=== PATIENT | female | born 1995 | race Caucasian/White ===

== ENCOUNTER 2019-06-21 21:59 | Inpatient (IN) ==
[2019-06-21] MEDS ORDERED: OXYTOCIN 30 UNITS/500 ML BAG IV PRN (22:05)
[2019-06-21] MEDS: LACTATED RINGER'S 1,000 ML IV PRN ×2 (22:14→23:26)
[2019-06-21] MEDS ORDERED: ePHEDrine sulfate 50 MG/ML AMP ONE (22:20)
[2019-06-21] MEDS ORDERED: fentaNYL citrate 100 MCG/2 ML VIAL ONE (22:20)
[2019-06-21] MEDS ORDERED: BUPIVACAINE 0.25% 30 ML VIAL ONE (22:20)
[2019-06-21] MEDS ORDERED: fentaNYL 2MCG/ML ROPIV 1.25MG/ML 100 ML BAG EPI ONE (22:20)
[2019-06-21 22:25] LABS: Hematocrit (blood only) 36.9 % (37-47); Hemoglobin 12.3 g/dL (12.0-16.0); Mean Corpuscular Hemoglobin 27.2 pg (25-34); Mean Corpuscular Volume 81.6 fL (80-100); Mean Platelet Volume 9.8 fL (7.4-10.4); Platelet Count 257 K/uL (130-400); RDW Standard Deviation 41.9 fL (36.4-46.3); Red Blood Count 4.52 M/uL (4.2-5.4); White Blood Count 12.11 K/uL (4.8-10.8)
[2019-06-21 22:32] LABS: Mean Corpuscular Hgb Conc 33.3 g/dL (32-36)
--- NOTE | 2019-06-21 22:46 | Anesthesiology Consultation ---
Date of Service June 21, 2019 Assessment & Plan Chart Review Chart Review: Patient NOT seen in Pre Admission Testing and Acceptable Risk for Labor Epidural Consults Requested none ASA ASA2 Proposed Anesthesia Anesthesia Type: Labor Epidural and CSE Risk / Benefits Reviewed With: PT / POA / Parent / Guardian, Accepts Plan and Informed Consent Obtained History Height/Weight Height: 5 ft 5 in Weight: 71.668 kg Allergies Allergy/AdvReac Type Severity Reaction Status Date / Time No Known Allergies Allergy Verified 06/21/19 22:15 Medications Home Medications Medication Instructions Recorded Confirmed Last Taken 1 tab PO DAILY 04/27/19 06/21/19 06/20/19 vitamin,calcium,zmlucmlv-azfq-tzgqa acid tablet Active Medications Generic Name Dose Route Start Last Admin Trade Name Freq PRN Reason Stop Dose Admin Lactated Ringer's 1,000 mls @ 125 mls/hr 06/21/19 22:05 06/21/19 22:14 Lr IV 06/23/19 22:04 999 mls/hr .Q8H PRN Administration L&D Protocol Protocol NPO Date Last Intake of Fluids: 06/21/19 Time Last Intake of Fluids: 22:00 Date Last Intake of Solids: 06/21/19 Time Last Intake of Solids: 19:30 Past Medical History Medical History History of kidney stones History of varicella Hx of migraines no meds Exercise / Class Metabolic Activity II 4-5 Yardwork/Stairs/Walk up hill Past Family History Family History Mother Depression Sister Depression Grandmother (Maternal) Breast cancer Colorectal cancer Past Surgical History Surgical History S/P wisdom tooth extraction at age 18 Past Anesthesia History No Hx of Anesthesia Complications and No Family Hx of Anesthesia Complications History of PONV No Hx of PONV and No Hx of Motion Sickness Social History Smoking Status: Never smoker Hx Alcohol Use: No Hx Substance Use: No Review of Systems no chest pain or sob Physical Exam Vital Signs Last Vital Signs Temp 36.9 C 06/21/19 22:05 Pulse 78 06/21/19 22:31 Resp 20 06/21/19 22:05 BP 124/62 06/21/19 22:31 ENMT Mouth: no TMJ abnormality Thyromental Distance: > or= 3.5 Finger Breadths Mallampati Class: II Neck normal visual inspection Respiratory normal respiratory effort Auscultation: lungs clear to auscultation bilaterally Cardiovascular Rate/Rhythm: regular rate and regular rhythm Musculoskeletal Spine: normal cervical ROM Neurologic moves all extremities Psychiatric Orientation: alert and oriented x 3 Testing Laboratory Results 06/21/19 22:15
[2019-06-21] MEDS ORDERED: NALBUPHINE HCL INJ 10 MG/ML AMP IV PRN (23:04)
[2019-06-21] MEDS ORDERED: NALOXONE HCL 0.4 MG/1 ML VIAL/CARP IV PRN (23:04)
[2019-06-21] MEDS ORDERED: NALOXONE HCL 1 MG in SODIUM CHLORIDE 0.9% 1000ML 1,000 ML IV PRN (23:04)
[2019-06-21] MEDS ORDERED: ONDANSETRON INJ 2 MG/ML 2 ML VIAL IV PRN (23:04)
[2019-06-21] MEDS ORDERED: ePHEDrine sulfate 50 MG/ML AMP IV PRN (23:04)
[2019-06-21] MEDS ORDERED: fentaNYL 2MCG/ML ROPIV 1.25MG/ML 100 ML BAG EPI PRN (23:04)
[2019-06-21] MEDS ORDERED: DiphenhydrAMINE HCL 50 MG/ML VIAL IV PRN (23:04)
--- NOTE | 2019-06-21 23:38 | History & Physical Report ---
Date of Service June 21, 2019 Assessment & Plan (1) : Spontaneous labor. Admit to L&D. Labs, EFM/toco. OK for epidural. Anticipate . History of Present Illness Chief Complaint: spontaneous labor Primary Care Provider: JERRY PCP 23yo @ 38 02/02 presents with spontaneous labor. She has had regular contractions, increasing in frequency and intensity since 6pm tonight. No leaking of fluid, no vaginal bleeding. + movement. 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 Allergies Allergy/AdvReac Type Severity Reaction Status Date / Time No Known Allergies Allergy Verified 06/21/19 22:15 Home Medications Home Medications Medication Instructions Recorded Confirmed Type 1 tab PO DAILY 04/27/19 06/21/19 History vitamin,calcium,knqdlnbc-viho-fpirw acid tablet Patient History Medical History History of kidney stones History of varicella Hx of migraines no meds Surgical History S/P wisdom tooth extraction at age 18 Family History Mother Depression Sister Depression Grandmother (Maternal) Breast cancer Colorectal cancer Social History Preferred Language: Belarusian Communication Ability: Effective [employer] Required: No Beliefs That Will Affect Care: None marital status: Current Living Situation: Spouse Current Living Situation Comment: house with daughter Feels Safe at Home: Yes Safety Concerns: Feels Safe At This Time Smoking Status: Never smoker Hx Alcohol Use: No Hx Substance Use: No Review of Systems All systems reviewed & are unremarkable except as noted in HPI & below Physical Exam Physical Exam: SVE per RN: /-1 FHT Cat 1 [place] Q 2 min Constitutional: WD/WN, vitals as above Respiratory: normal respiratory effort, lungs clear to auscultation no respiratory distress Cardiovascular: Rate/Rhythm: regular rate and regular rhythm Gastrointestinal (Abdomen): Inspection/Auscultation: abdomen normal to inspection Percussion/Palpation: abdomen soft; abdomen nontender Gravid. No s/s chorio or abruption. Skin: no rashes, warm and dry Psychiatric: A+Ox3, euthymic affect Results & Data Vital Signs (Past 12 Hours) Vital Signs Temp Pulse Resp BP Pulse Ox 06/21/19 23:06 95 H 101/56 L 06/21/19 23:04 93 H 106/60 95 06/21/19 23:02 100 H 107/61 06/21/19 23:00 92 H 110/59 L 06/21/19 22:59 105 H 97 06/21/19 22:58 86 119/63 94 06/21/19 22:54 96 H 99 06/21/19 22:49 109 H 99 06/21/19 22:44 98 H 99 06/21/19 22:31 78 124/62 06/21/19 22:05 36.9 C 111 H 20 140/84 06/21/19 22:02 111 H 140/84
--- NOTE | 2019-06-21 23:48 | Obstetrical Progress Note ---
Date of Service June 21, 2019 Subjective Comfortable with epidural. FHT cat 1, toco Q2 SVE 6/100/-1 AROM clear fluid Results & Data Vital Signs (Past 12 Hours) Vital Signs Temp Pulse Resp BP Pulse Ox 06/21/19 23:44 101 H 96 06/21/19 23:39 99 H 96 06/21/19 23:38 100 H 111/60 94 06/21/19 23:34 96 H 97 06/21/19 23:33 114 H 118/64 06/21/19 23:29 105 H 117/59 L 97 06/21/19 23:24 104 H 96 06/21/19 23:23 109 H 113/57 L 06/21/19 23:20 96 H 117/65 92 06/21/19 23:19 94 H 95 06/21/19 23:14 108 H 106/59 L 97 06/21/19 23:09 98 H 97 06/21/19 23:08 98 H 101/59 L 06/21/19 23:06 95 H 101/56 L 06/21/19 23:04 93 H 106/60 95 06/21/19 23:02 100 H 107/61 06/21/19 23:00 92 H 110/59 L 06/21/19 22:59 105 H 97 06/21/19 22:58 86 119/63 94 06/21/19 22:54 96 H 99 06/21/19 22:49 109 H 99 06/21/19 22:44 98 H 99 06/21/19 22:31 78 124/62 06/21/19 22:05 36.9 C 111 H 20 140/84 06/21/19 22:02 111 H 140/84 PG Care Time/CCT Total # of Minutes Spent Total Time Spent with Patient: Total time spent is greater than 50% in coordination of care (as documented) at patient's floor/unit and/or counseling patient:
--- NOTE | 2019-06-22 02:58 | Delivery Summary ---
Vaginal Delivery Summary Date of Service June 22, 2019 Vaginal Delivery Summary Vaginal Delivery Summary: Pre-delivery diagnoses: 24yo @ 38 6/, spontaneous labor, CF carrier Post-delivery diagnoses: same Procedure: spontaneous vaginal delivery Surgeon: Anita Samson DO Complications: none Findings: Viable female . Apgars: 9/9. Weight pending, please see nursery records Estimated blood loss: 300ml Description of delivery: The patient progressed to complete with epidural anesthesia. She then began to push. She spontaneously vaginally delivered a viable from the cephalic presentation. The head delivered in RAYMOND position. The anterior shoulder delivered, followed by the posterior shoulder, followed by the body. The baby was placed on mother's abdomen and a spontaneous cry was heard. The cord was doubly clamped and cut. Cord blood was obtained. The placenta was delivered spontaneously intact with a 3-vessel cord. The uterus and vagina were swept of clots and debris. IV pitocin was given. The uterus became firm. The cervix, vagina, and perineum were inspected and no lacerations were noted. Excellent hemostasis was observed. The mother and baby are recovering in stable and good condition in the room. Sponge and instrument counts were correct x 2. Anita Samson DO [facility] [place]
--- NOTE | 2019-06-22 03:29 | Anesthesia Procedure Note ---
Date of Service June 22, 2019 Anesthesia Post Epidural Note Vital Signs Vital Signs: Temp Pulse Resp BP Pulse Ox 36.8 C 69 18 104/59 L 96 06/22/19 01:41 06/22/19 03:26 06/22/19 03:11 06/22/19 03:26 06/22/19 01:05 Notes Mental Status: alert / awake / arousable and participated in evaluation Nausea / Vomiting: adequately controlled Pain: adequately controlled Airway Patency, RR, SpO2: stable & adequate BP & HR: stable & adequate Hydration State: stable & adequate Neuraxial Anesthesia: was administered and sensory block is resolving Anesthetic Complications: no major complications apparent and Pt Satisfied with anesthetic care Epidural: Removed without complications and With tip intact
[2019-06-22] MEDS ORDERED: OXYCODONE/ACETAMINOPHEN 5mg/325mg TAB PO PRN (04:27)
[2019-06-22] MEDS ORDERED: BISACODYL 10 MG SUPP PR PRN (04:27)
[2019-06-22] MEDS ORDERED: DIPHTHERIA/TETANUS/PERTUSSIS 0.5 ML SYR/VIAL IM ONE (04:27)
[2019-06-22] MEDS ORDERED: OXYTOCIN 30 UNITS/500 ML BAG IV PRN (04:27)
[2019-06-22] MEDS ORDERED: SUPERCREAM 0.870% 15 GM JAR EXT PRN (04:27)
[2019-06-22] MEDS ORDERED: HYDROCORTISONE ACETATE 25 MG SUPP PR PRN (04:27)
[2019-06-22] MEDS ORDERED: BENZOCAINE 20% AER SPR 82.5 GM CAN EXT PRN (04:27)
[2019-06-22] MEDS ORDERED: ACETAMINOPHEN 325 MG TAB PO PRN (04:27)
[2019-06-22] MEDS ORDERED: IBUPROFEN 600 MG TAB PO PRN (04:27)
--- NOTE | 2019-06-22 06:13 | Obstetrical Progress Note ---
Date of Service <Mariana Lin DO - Last Filed: 06/22/19 06:48> June 22, 2019 Assessment & Plan <DO Kami Duron Last Filed: 06/22/19 06:48> (1) Encounter for care and examination after delivery: 34 yo F PPD #1 following vaginal delivery at 38w6d, doing well and without complaints this morning. - PPD #1 - Feels well, ambulating well, voiding well. - Will continue routine care. - Following d/c will have f/u in 6 weeks. - Blood type B+, Rubella immune. Day #:: 1 Subjective <Mariana Lin DO - Last Filed: 06/22/19 06:48> Belem is a 24 yo female ; PPD # 1 following spontaneous vaginal delivery at 38w6d; doing well this AM; no abdominal cramping/pain; voiding well, passing gas but no BM; tolerating meals overnight, able to ambulate some within the room. Some persistent spotting this morning but improved from yesterday. Review of Systems Constitutional: denies fever, chills, sweats, headache Respiratory: denies SOB, difficulty breathing Cardiac: denies CP, chest palpitations, chest pressure Breast: denies breast pain : denies dysuria Physical Exam <DO Kami Duron Last Filed: 06/22/19 06:48> General: patient is alert and oriented, in NAD Cardiac: +S1/S2, no murmurs rubs or gallops Respiratory: lungs CTA b/l, anteriorly and posteriorly, no wheezes rales or rhonchi, no increased work of breathing, symmetric chest rise, no respiratory distress Abdomen: soft, NT, +bowel sounds Uterus: uterine fundus firm, palpable 2cm below the umbilicus Lower Extremities: no LE edema or swelling, no deep calf pain, Agatha's sign negative b/l Results & Data <DO Kami Duron Last Filed: 06/22/19 06:48> Vital Signs (Past 12 Hours) Vital Signs Temp Pulse Pulse Resp BP BP Pulse Ox 06/22/19 04:00 36.9 C 81 17 115/75 97 06/22/19 03:26 69 104/59 L 06/22/19 03:11 75 18 102/56 L 06/22/19 02:56 94 H 105/57 L 06/22/19 02:41 68 18 106/59 L 06/22/19 02:26 82 112/68 06/22/19 02:11 83 18 114/62 06/22/19 01:56 86 18 115/63 06/22/19 01:41 36.8 C 86 18 115/63 06/22/19 01:26 96 H 18 114/59 L 06/22/19 01:11 100 H 18 114/62 06/22/19 01:05 108 H 96 06/22/19 01:00 114 H 96 06/22/19 00:57 112 H 126/77 06/22/19 00:55 101 H 99 06/22/19 00:50 95 H 97 06/22/19 00:45 112 H 96 06/22/19 00:44 112 H 99/58 L 06/22/19 00:40 89 95 06/22/19 00:35 88 96 06/22/19 00:30 109 H 96 06/22/19 00:28 104 H 117/65 06/22/19 00:25 84 96 06/22/19 00:23 86 103/65 06/22/19 00:20 115 H 99 06/22/19 00:19 97 H 98/68 L 06/22/19 00:16 88 76/42 L 06/22/19 00:15 89 96 06/22/19 00:12 100 H 82/45 L 06/22/19 00:10 99 H 96 06/22/19 00:05 102 H 96 06/22/19 00:00 90 95 06/21/19 23:58 100 H 89/51 L 06/21/19 23:57 102 H 94 06/21/19 23:55 106 H 96 06/21/19 23:52 96 H 119/56 L 06/21/19 23:50 98 H 85 L 06/21/19 23:44 101 H 96 06/21/19 23:39 99 H 96 06/21/19 23:38 100 H 111/60 94 06/21/19 23:34 96 H 97 06/21/19 23:33 114 H 118/64 06/21/19 23:29 105 H 117/59 L 97 06/21/19 23:24 104 H 96 06/21/19 23:23 109 H 113/57 L 06/21/19 23:20 96 H 117/65 92 06/21/19 23:19 94 H 95 06/21/19 23:14 108 H 106/59 L 97 06/21/19 23:09 98 H 97 06/21/19 23:08 98 H 101/59 L 06/21/19 23:06 95 H 101/56 L 06/21/19 23:04 93 H 106/60 95 06/21/19 23:02 100 H 107/61 06/21/19 23:00 92 H 110/59 L 06/21/19 22:59 105 H 97 06/21/19 22:58 86 119/63 94 06/21/19 22:54 96 H 99 06/21/19 22:49 109 H 99 06/21/19 22:44 98 H 99 06/21/19 22:31 78 124/62 06/21/19 22:05 36.9 C 111 H 20 140/84 06/21/19 22:02 111 H 140/84 Laboratory Results Laboratory Results - last 24 hr 06/21/19 06/21/19 22:15 22:15 WBC 12.11 H RBC 4.52 Hgb 12.3 Hct 36.9 L MCV 81.6 MCH 27.2 MCHC 33.3 RDW Std Deviation 41.9 RDW Coeff of Mina 14.0 Plt Count 257 MPV 9.8 Blood Type Pending Medications Administered Current Medications Acetaminophen (Tylenol) 650 mg PO Q6H PRN PRN Reason: Pain/RANDALL/Fever Stop: 07/22/19 04:26 Benzocaine (Dermoplast Pain Relieving [place]) 1 appln EXT PRN PRN PRN Reason: Perineal Discomfort Stop: 07/22/19 04:26 Bisacodyl (Dulcolax) 5 mg PO 2000 AURY Stop: 06/23/19 20:01 Bisacodyl (Dulcolax) 10 mg IN DAILY PRN PRN Reason: No BM on 2nd post- day Stop: 07/22/19 04:26 Cocaine HCl (Supercream 0.870%) 1 gm EXT BID PRN PRN Reason: Hemorrhoidal Inflammation Stop: 07/06/19 04:26 Docusate Sodium (Colace) 100 mg PO DAILY@08,21 AURY Stop: 07/22/19 07:59 Hydrocortisone (Anusol Hc) 25 mg IN BID PRN PRN Reason: Hemorrhoidal Inflammation Stop: 07/22/19 04:26 Oxytocin (Pitocin) 30 units in 500 mls @ 333.333 mls/hr IV .Q1H30M PRN; Protocol PRN Reason: Bleeding Control Stop: 07/22/19 04:26 Ibuprofen (Motrin) 600 mg PO Q4H PRN PRN Reason: Pain/RANDALL/Cramping/Fever Stop: 07/22/19 04:26 Oxycodone/Acetaminophen (Percocet 5mg/325mg) 1 tab PO Q4H PRN PRN Reason: Pain not relieved by... Stop: 07/06/19 04:26 Prenat Multivit/[place]/Iron/Folic Ac ( Vitamin) 1 tab PO DAILY@08 AURY Stop: 07/22/19 07:59 <Anita Samson DO - Last Filed: 06/22/19 08:27> Co-Signing Physician Notes Resident Physician Supervision Note: I was present with Dr. Ayala during the history and exam. I discussed the case with the resident and agree with the findings and plan as documented in the note. Any exceptions or clarifications are listed here: PPD#0 - resident note is incorrect, but unable to amend this due to [facility]. No concerns. Routine care. Documented By: Anita Samson DO Resident Activity Tracking <Mariana Lin DO - Last Filed: 06/22/19 06:48> Resident Involvement: Resident Care Provided Care Provided: Adult [facility] Medicine
[2019-06-22] MEDS: PRENATAL VITAMIN 1 TAB PO SCH (09:03)
[2019-06-22] MEDS: DOCUSATE SODIUM 100 MG CAP PO SCH ×2 (09:03→20:36)
--- NOTE | 2019-06-23 05:59 | Obstetrical Progress Note ---
Date of Service <Mariana Lin DO - Last Filed: 06/23/19 06:49> June 23, 2019 Assessment & Plan <Mariana Lin DO - Last Filed: 06/23/19 06:49> (1) Encounter for care and examination after delivery: 34 yo F PPD #1 following vaginal delivery at 38w6d, doing well and without complaints this morning. - PPD #1 - Feels well, ambulating well, voiding well. - Will continue routine care. - Following d/c will have f/u in 6 weeks. - Blood type B+, Rubella immune. Subjective <Mariana Lin DO - Last Filed: 06/23/19 06:49> Be[place] is a 24 yo female ; PPD # 2 following spontaneous vaginal delivery at 38w6d; doing well this AM; no abdominal cramping/pain; voiding well, passing gas but no BM; tolerating meals overnight, able to ambulate some within the room. Some persistent spotting this morning but improved from yesterday. Review of Systems Constitutional: denies fever, chills, sweats, headache Respiratory: denies SOB, difficulty breathing Cardiac: denies CP, chest palpitations, chest pressure Breast: denies breast pain : denies dysuria Physical Exam <Mariana Lin DO - Last Filed: 06/23/19 06:49> General: patient is alert and oriented, in NAD Cardiac: +S1/S2, no murmurs rubs or gallops Respiratory: lungs CTA b/l, anteriorly and posteriorly, no wheezes rales or rhonchi, no increased work of breathing, symmetric chest rise, no respiratory distress Abdomen: soft, NT, +bowel sounds Uterus: uterine fundus firm, palpable 3cm below the umbilicus Lower Extremities: no LE edema or swelling, no deep calf pain, Agatha's sign negative b/l Results & Data <DO Kami Duron Last Filed: 06/23/19 06:49> Vital Signs (Past 12 Hours) Vital Signs Temp Pulse Resp BP Pulse Ox 06/23/19 00:35 36.5 C 67 16 118/71 97 06/22/19 20:30 36.9 C 72 16 102/65 98 Laboratory Results Laboratory Results - last 24 hr 06/21/19 22:15 Blood Type B Positive Medications Administered Current Medications Acetaminophen (Tylenol) 650 mg PO Q6H PRN PRN Reason: Pain/RADNALL/Fever Stop: 07/22/19 04:26 Benzocaine (Dermoplast Pain Relieving [place]) 1 appln EXT PRN PRN PRN Reason: Perineal Discomfort Stop: 07/22/19 04:26 Bisacodyl (Dulcolax) 5 mg PO 2000 [facility] Stop: 06/23/19 20:01 Bisacodyl (Dulcolax) 10 mg DE DAILY PRN PRN Reason: No BM on 2nd post- day Stop: 07/22/19 04:26 Cocaine HCl (Supercream 0.870%) 1 gm EXT BID PRN PRN Reason: Hemorrhoidal Inflammation Stop: 07/06/19 04:26 Docusate Sodium (Colace) 100 mg PO DAILY@08,21 [facility] Stop: 07/22/19 07:59 Last Admin: 06/22/19 20:36 Dose: 100 mg Documented by: Hydrocortisone (Anusol Hc) 25 mg DE BID PRN PRN Reason: Hemorrhoidal Inflammation Stop: 07/22/19 04:26 Oxytocin (Pitocin) 30 units in 500 mls @ 333.333 mls/hr IV .Q1H30M PRN; Protocol PRN Reason: Bleeding Control Stop: 07/22/19 04:26 Ibuprofen (Motrin) 600 mg PO Q4H PRN PRN Reason: Pain/RANDALL/Cramping/Fever Stop: 07/22/19 04:26 Last Admin: 06/22/19 16:14 Dose: 600 mg Documented by: Oxycodone/Acetaminophen (Percocet 5mg/325mg) 1 tab PO Q4H PRN PRN Reason: Pain not relieved by... Stop: 07/06/19 04:26 Prenat Multivit/[place]/Iron/Folic Ac ( Vitamin) 1 tab PO DAILY@08 [facility] Stop: 07/22/19 07:59 Last Admin: 06/22/19 09:03 Dose: 1 tab Documented by: <Ravindra Crane Jr, MD, FACOG - Last Filed: 06/23/19 08:03> Co-Signing Physician Notes Resident Physician Supervision Note: I was present with Dr. Ayala during the history and exam. I discussed the case with the resident and agree with the findings and plan as documented in the note. Any exceptions or clarifications are listed here: patient desires discharge, instructions given, f/u in 6 weeks Documented By: Ravindra Crane Jr, MD, FACOG Resident Activity Tracking <Mariana Lin DO - Last Filed: 06/23/19 06:49> Resident Involvement: Resident Care Provided Care Provided: Adult [facility] Medicine
[2019-06-23 07:18] LABS: Hematocrit (blood only) 37.8 % (37-47); Hemoglobin 12.4 g/dL (12.0-16.0); Mean Corpuscular Hemoglobin 27.2 pg (25-34); Mean Corpuscular Hgb Conc 32.8 g/dL (32-36); Mean Corpuscular Volume 82.9 fL (80-100); Mean Platelet Volume 10.1 fL (7.4-10.4); Platelet Count 240 K/uL (130-400); RDW Coefficient of Variation 14.2 % (11.5-14.5); RDW Standard Deviation 42.6 fL (36.4-46.3); Red Blood Count 4.56 M/uL (4.2-5.4); White Blood Count 11.13 K/uL (4.8-10.8)
[2019-06-23] MEDS: PRENATAL VITAMIN 1 TAB PO SCH (07:57)
[2019-06-23] MEDS: DOCUSATE SODIUM 100 MG CAP PO SCH (07:57)
[2019-06-23] MEDS ORDERED: BISACODYL 5 MG TABEC PO SCH (20:00)
== END 2019-06-23 11:12 | disposition home or self-care (01) | DRG 807 ==
LOC: OPB 21:59 → 4S1 22:00 → 4S2 06-22 03:56

== ENCOUNTER 2020-11-26 11:30 | Observation (INO) ==
--- NOTE | 2020-11-26 13:03 | Labor Progress Brief Note ---
Date of Service November 26, 2020 Subjective Patient presents from home with c/o ctx Q2min, nonpainful, but notes that she had no pain with contractions during labor with her first two children either. No LOF, no VB, +FM. Assessment & Plan (1) Uterine contractions: Reassess in 1-2 hour Physical Exam Physical Exam: /-2 FHT Cat 1 [place] Q2-3 No ROM evident Results & Data ([facility]) Vital Signs (Past 12 Hours) Vital Signs Temp Pulse Resp BP 11/26/20 11:40 90 20 118/63 11/26/20 11:30 97.9 F 20 Coding Level of Care Code None Diagnoses Uterine contractions
--- NOTE | 2020-11-26 14:44 | Labor Progress Brief Note ---
Date of Service November 26, 2020 Subjective Patient has told RN she is feeling less crampy, contractions further apart, despite ambulation. She also mentioned she had sex earlier this morning which she hadn't told me at the time of admission. +FM no LOF no VB. Assessment & Plan (1) Uterine contractions: Likely 2/2 intercourse, now spacing further apart, and without cervical change, therefore not in labor at this time. status reassuring. Keep upcoming office appointments as planned. Physical Exam Physical Exam: cervix unchanged. FHT Cat 1 [place] Q5m Results & Data ([facility]) Vital Signs (Past 12 Hours) Vital Signs Temp Pulse Resp BP 11/26/20 14:23 97.9 F 106 H 20 111/71 11/26/20 11:40 90 20 118/63 11/26/20 11:30 97.9 F 20 Coding Level of Care Code 83660 Office/Outpt Visit, Est Diagnoses Uterine contractions
== END 2020-11-26 15:10 | disposition home or self-care (01) ==
LOC: OPB 11:30 → 4S1 11:30

== ENCOUNTER 2022-08-19 22:39 | Inpatient (IN) ==
[2022-08-19] MEDS ORDERED: LIDOCAINE 1% LOCAL 20 ML VIAL INFIL PRN (23:19)
[2022-08-19] MEDS ORDERED: OXYTOCIN 30 UNITS/500 ML BAG IV PRN (23:19)
[2022-08-19 23:37] LABS: Hematocrit (blood only) 35.6 % (34.1-44.9); Mean Corpuscular Hemoglobin 27.6 pg (25.0-34.0); Mean Corpuscular Hgb Conc 33.7 g/dL (32.0-36.0); Mean Platelet Volume 9.9 fL (9.4-12.3); Platelet Count 266 K/uL (130-400); RDW Coefficient of Variation 13.2 % (11.5-14.5); RDW Standard Deviation 39.4 fL (36.4-46.3); Red Blood Count 4.34 M/uL (3.93-5.22); White Blood Count 9.88 K/ul (4.8-10.8)
[2022-08-19] MEDS: LACTATED RINGER'S 1,000 ML IV PRN (23:41)
[2022-08-19] MEDS ORDERED: fentaNYL citrate 100 MCG/2 ML VIAL ONE (23:45)
[2022-08-19] MEDS ORDERED: BUPIVACAINE 0.25% 30 ML VIAL ONE (23:45)
[2022-08-19] MEDS ORDERED: SODIUM CHLORIDE 0.9% INJ 10 ML VIAL ONE (23:45)
[2022-08-19] MEDS ORDERED: ePHEDrine sulfate 50 MG/ML AMP ONE (23:45)
[2022-08-19] MEDS ORDERED: LIDOCAINE 2%/EPINEPHRINE 1:200,000 20 ML SDV ONE (23:45)
[2022-08-19] MEDS ORDERED: fentaNYL 2MCG/ML ROPIVACAINE 1.25MG/ML 100 ML BAG EPI ONE (23:46)
[2022-08-20] MEDS ORDERED: NALOXONE HCL 1 MG in SODIUM CHLORIDE 0.9% 1000ML 1,000 ML IV PRN (00:36)
[2022-08-20] MEDS ORDERED: fentaNYL 2MCG/ML ROPIVACAINE 1.25MG/ML 100 ML BAG EPI PRN (00:36)
[2022-08-20] MEDS ORDERED: ONDANSETRON INJ 2 MG/ML 2 ML VIAL IV PRN (00:36)
[2022-08-20] MEDS ORDERED: ePHEDrine sulfate 50 MG/ML AMP IV PRN (00:36)
[2022-08-20] MEDS ORDERED: NALBUPHINE HCL INJ 10 MG/ML AMP IV PRN (00:36)
[2022-08-20] MEDS ORDERED: diphenhydrAMINE 50 MG/ML VIAL IV PRN (00:36)
[2022-08-20] MEDS ORDERED: NALOXONE HCL 0.4 MG/1 ML VIAL/CARP IV PRN (00:36)
--- NOTE | 2022-08-20 00:36 | Anesthesiology Consultation ---
Date of Service August 20, 2022 Assessment & Plan Chart Review Chart Review: Patient NOT seen in Pre Admission Testing and Acceptable Risk for Labor Epidural Consults Requested none ASA ASA2 Proposed Anesthesia Anesthesia Type: CSE Risk / Benefits Reviewed With: PT / POA / Parent / Guardian, Accepts Plan and Informed Consent Obtained History Height/Weight Height: 5 ft 5 in Weight: 76.385 kg Allergies Allergy/AdvReac Type Severity Reaction Status Date / Time No Known Allergies Allergy Verified 08/19/22 10:35 Medications Home Medications Medication Instructions Recorded Confirmed Last Taken magnesium PO 01/21/22 08/19/22 Unknown prenat.vits,shruthi,cta-ndfe-rbiiu 1 tab PO DAILY 01/21/22 08/20/22 Unknown riboflavin (vitamin B2) PO 01/21/22 08/19/22 Unknown Active Medications Generic Name Dose Route Start Last Admin Trade Name Freq PRN Reason Stop Dose Admin Lactated Ringer's 1,000 mls @ 125 mls/hr 08/19/22 23:19 08/19/22 23:41 Lr IV 08/21/22 23:18 999 mls/hr .Q8H PRN Administration L&D Protocol Protocol Past Medical History Medical History Classic migraine with aura Cystic fibrosis carrier History of kidney stones History of varicella Hx of migraines Normal vaginal delivery Exercise / Class Metabolic Activity II 4-5 Yardwork/Stairs/Walk up hill Past Family History Family History Mother Depression Sister Depression Grandmother (Maternal) Breast cancer Colorectal cancer Past Surgical History Surgical History S/P wisdom tooth extraction Past Anesthesia History No Hx of Anesthesia Complications and No Family Hx of Anesthesia Complications History of PONV No Hx of PONV and No Hx of Motion Sickness Social History Smoking Status: Never smoker Hx Alcohol Use: No Hx Substance Use: No substance use type: does not use Physical Exam Vital Signs Last Vital Signs Temp 36.8 C 08/19/22 23:10 Pulse 79 08/20/22 00:32 Resp 20 08/20/22 00:30 BP 120/70 08/20/22 00:32 Pulse Ox 98 08/20/22 00:32 ENMT Mouth: no dentition abnormality Thyromental Distance: > or= 3.5 Finger Breadths Mallampati Class: II Neck normal visual inspection Respiratory normal respiratory effort Auscultation: lungs clear to auscultation bilaterally Cardiovascular Rate/Rhythm: regular rate and regular rhythm Psychiatric Orientation: alert Testing Laboratory Results 08/19/22 23:25
[2022-08-20] MEDS: LACTATED RINGER'S 1,000 ML IV PRN (01:25)
[2022-08-20] MEDS ORDERED: HYDROCORTISONE ACETATE 25 MG SUPP PR PRN (01:46)
[2022-08-20] MEDS ORDERED: DIPHTHERIA/TETANUS/PERTUSSIS 0.5 ML SYR/VIAL IM ONE (01:46)
[2022-08-20] MEDS ORDERED: bisacodyL 10 MG SUPP PR PRN (01:46)
[2022-08-20] MEDS ORDERED: OXYTOCIN 30 UNITS/500 ML BAG IV PRN (01:46)
[2022-08-20] MEDS ORDERED: ACETAMINOPHEN 325 MG TAB PO PRN (01:46)
[2022-08-20] MEDS ORDERED: BENZOCAINE 20% AER SPR 82.5 GM CAN EXT PRN (01:46)
--- NOTE | 2022-08-20 03:21 | Anesthesia Procedure Note ---
Date of Service August 20, 2022 Anesthesia Post Epidural Note Vital Signs Vital Signs: Temp Pulse Resp BP Pulse Ox 36.8 C 93 H 18 107/59 L 99 08/20/22 00:40 08/20/22 03:16 08/20/22 03:15 08/20/22 03:16 08/20/22 01:47 Notes Mental Status: alert / awake / arousable Nausea / Vomiting: adequately controlled Pain: adequately controlled Airway Patency, RR, SpO2: stable & adequate BP & HR: stable & adequate Hydration State: stable & adequate Neuraxial Anesthesia: was administered and sensory block is resolving Anesthetic Complications: no major complications apparent and Pt Satisfied with anesthetic care Epidural: Removed without complications and With tip intact
--- NOTE | 2022-08-20 07:26 | Delivery Summary ---
DATE OF SERVICE: 08/20/2022. PROCEDURE: Normal spontaneous vaginal delivery. SURGEON: Mario Anna MD. PREOPERATIVE DIAGNOSES: 1. Single intrauterine at 38 weeks 0 days gestational age. 2. Spontaneous labor with rupture of membranes. POSTOPERATIVE DIAGNOSES: 1. Single intrauterine at 38 weeks 0 days gestational age. 2. Spontaneous labor with rupture of membranes. 3. Status post procedure. ESTIMATED BLOOD LOSS: 300 mL DRAINS: Straight cath at the completion of the case. URINE OUTPUT: Per straight cath. COMPLICATIONS: None. FINDINGS: Viable male with weight of 8 pounds 14 ounces and Apgars of 7 and 9 at one and fiv e minutes respectively. INDICATIONS: Belem is a 27-year-old G4, P3, admitted with spontaneous rupture of membranes in labor . The patient progressed in labor rapidly without augmentation to complete-complete, +2 station. Th e patient pushed over approximately 2-3 contractions to achieve delivery. DESCRIPTION OF PROCEDURE: The patient progressed to 10 cm dilated, 100% effaced, positive 2 station, pushed over intact perineum with epidural anesthesia, delivered a viable with weight and Apg ars as above. Head of the delivered in RAYMOND position, restituted to left transverse. No nuch al cord was noted. Body and shoulders quickly followed. was noted to be vigorous upon deliv imani and a 1 minute delayed cord clamping was initiated. Cord was then double clamped and cut. Neona te remained on maternal abdomen. Cord blood was obtained. Attention was then turned to delivery of the placenta, which was delivered intact, 3-vessel cord, gentle cord traction. On inspection of the perineum, vagina, cervix, there was noted to be no lacerations. The patient was given 800 mcg of Cyt otec at the completion of the case. Sponge and instrument counts were correct at the completion of t he case. Both mother and stable in the immediate post-delivery period. Job ID: [id number]
[2022-08-20] MEDS: DOCUSATE SODIUM 100 MG CAP PO SCH ×2 (08:04→20:42)
[2022-08-20] MEDS: PRENATAL VITAMIN 1 TAB PO SCH (08:04)
[2022-08-20] MEDS: FERROUS SULFATE 325 MG TAB PO SCH (08:04)
[2022-08-20] MEDS: IBUPROFEN 600 MG TAB PO PRN ×3 (12:11→23:30)
[2022-08-21] MEDS: IBUPROFEN 600 MG TAB PO PRN (05:13)
--- NOTE | 2022-08-21 05:55 | Obstetrical Progress Note ---
Date of Service <Rylee Diamond MD - Last Filed: 08/21/22 07:27> August 21, 2022 Assessment & Plan <Rylee Diamond MD - Last Filed: 08/21/22 07:27> (1) care following vaginal delivery: 27 y/o female PPD1 s/p . B+. GBS neg. Rubella immune. Satisfactory post progress. Tolerating PO. Encourage ambulation. Cleared from an OB perspective - f/u in 6 weeks in office. <Mildred Mcgarry MD, FACOG - Last Filed: 08/21/22 07:28> (1) care following vaginal delivery: Subjective <Rylee Diamond MD - Last Filed: 08/21/22 07:27> Ambulation: ambulating normally Voiding: no voiding problems Passing Gas:: Yes Diet Tolerance:: regular diet Lochia:: Small Feeding Type:: breast feeding no f/c/SOB/CP/calf pain Physical Exam <Rylee Diamond MD - Last Filed: 08/21/22 07:27> Constitutional WD/WN, vitals as above Respiratory normal respiratory effort, lungs clear to auscultation Cardiovascular RRR, no murmur, no edema Extremities: no calf tenderness Psychiatric A+Ox3, euthymic affect Genitourinary OB Exam Abdomen: + fundal height (@ the level of the umbilicus) Fundus: + firm Results & Data ([facility]) <Rylee Diamond MD - Last Filed: 08/21/22 07:27> Vital Signs (Past 12 Hours) Vital Signs Temp Pulse Resp BP O2 Del Method 08/21/22 00:00 37.1 C 66 16 116/81 Room Air 08/20/22 19:40 37.1 C 80 18 106/68 Room Air <Mildred Mcgarry MD, FACOG - Last Filed: 08/21/22 07:28> Co-Signing Physician Notes Resident Physician Supervision Note: I interviewed and examined the patient. Discussed with Dr. Diamond and agree with findings and plan as documented in the note. Any exceptions or clarifications are listed here: Doing well. Plan d/c home. Instructions given. Documented By: Mildred Mcgarry MD, FACOG Resident Activity Tracking <Rylee Diamond MD - Last Filed: 08/21/22 07:27> Resident Involvement: Resident Care Provided Care Provided: OB Delivery
[2022-08-21 07:32] LABS: Hematocrit (blood only) 30.9 % (34.1-44.9); Hemoglobin 10.3 g/dl (12.0-16.0)
[2022-08-21] MEDS: PRENATAL VITAMIN 1 TAB PO SCH (08:49)
[2022-08-21] MEDS: DOCUSATE SODIUM 100 MG CAP PO SCH (08:49)
[2022-08-21] MEDS: FERROUS SULFATE 325 MG TAB PO SCH (08:49)
[2022-08-21] MEDS ORDERED: bisacodyL 5 MG TABEC PO SCH (20:00)
== END 2022-08-21 13:30 | disposition home or self-care (01) | DRG 807 ==
LOC: OPB 22:39 → 4S1 22:40 → 4E2 08-20 05:43